=== PATIENT | female | born 1940 | race Caucasian/White ===

== ENCOUNTER → 2017-02-27 | Outpatient (CLI) | payer MEDICARE, OTHER ==
[~2017-02-27] MED LIST: CYCL-375 PO; HYDR-4246 PO; NAPR250T PO
--- NOTE | 2017-02-27 11:54 | DI ---
INDICATION: ITS.REASON: Z01.818 ENCOUNTER FOR OTHER PREPROCEDURAL EXAM PROCEDURE: CHEST 2-VIEWS UPRIGHT (PA \T\ LAT) Encounter: Initial COMPARISON: 10/26/2012 FINDINGS: The lungs are clear without evidence of focal abnormal airspace opacity. There is no pleural effusion or pneumothorax. 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 The heart size, mediastinal contours and pulmonary vascularity are within normal limits. There is no significant skeletal abnormality. IMPRESSION: No acute cardiopulmonary disease. .
== END ==
LOC: IMA 10:47
PROVIDERS: ATTEND Family Medicine
DX: Z01.818 Encounter for other preprocedural examination (principal)

== ENCOUNTER 2017-03-13 07:07 | Day surgery (SDC) | payer MEDICARE, OTHER ==
[~2017-03-13] VITALS: Ht 165.1 cm; Wt 80.1 kg
[2017-03-13] VITALS (20 sets, daily range): BP systolic 111–150; BP diastolic 55–90; PULSE 68–90; RESP 12–20; TEMP 97.2–98; O2SAT 91–100; Ht 165.1 cm; Wt 80.1 kg
[~2017-03-13 07:07] MED LIST changes: +ALBU8.5H INH; +CLINDAMYCIN 600mg IVPB 50 ML IV ONE; +HYDR25TA PO; +LIDOCAINE 1% (10mg/ml) 2ml SDV INJ ONE; +LR 1,000 ML IV SCH; +MELO-273 PO; +PANT40TA PO; +TRAM50TA4 PO
--- OUTSIDE RECORDS SUMMARY | 2017-03-13 07:11 | XMS REPORT | Referral Summary ---
Author Author [facility], Family Medicine Organization [facility] Address Unknown Phone Unavailable Care Team Providers Care Manager Banking Name Role Phone MiguelitodariusChu Primary Care Physician [phone] Encounter Date(s): 11/02/16 - 11/02/16 [facility], Family [address] [place] [id number] Discharge Diagnosis: Hematoma of scalp Discharge Diagnosis: Acute chest pain Discharge Disposition: 01-Home or Self Care Attending Physician: Get Banda MD Admitting Physician: Get Banda MD Vital Signs Most recent to 1 oldest [Reference Range]: Temperature Tympanic 36.9 degC [36.6-38.1 degC] (11/02/16 3:34 PM) Peripheral Pulse 76 bpm Rate [60-100 bpm] (11/02/16 3:34 PM) Respiratory Rate 16 br/min [14-20 br/min] (11/02/16 3:34 PM) Diastolic Blood 96 mmHg Pressure [60-90 *HI* mmHg] (11/02/16 3:34 PM) Problem List Condition Effective Dates Status Health Status Informant Obesity(Confirmed) Active patient Allergies, Adverse Reactions, Alerts Substance Reaction Severity Status codeine Active iodine Active penicillin Active Medications Protonix 40 mg, Oral, Daily, 0 Refill(s) Start Date: 11/02/16 Status: Ordered traMADol 50 mg oral tablet 50 mg 1 tabs, Oral, q4hr, [facility], # 30 tabs, 0 Refill(s) Start Date: 11/02/16 Status: Ordered Results No data available for this section Immunizations No data available for this section Procedures No data available for this section Social History Social History Type Response Smoking Status Never smoker Assessment and Plan Extracted from: Title: Office Visit Note Author: Get Banda MD Date: 11/02/16 Assessment/Plan 1.Acute chest pain I don't see obvious fractures on herrib films. I suggestedTylenol and tramadol as needed for pain. I think between the soreness in her chest and her head she should not be working we'll recheck her Monday and see how she' s doing then. Ordered: XR Ribs 2 Views Right 2.Hematoma of scalp CT is reported as normal other than the scalp hematoma. We discussed different neurologic symptoms progress or worsen she should return to the emergency room. No work prior to Monday recheck then tramadol and Tylenol as needed for pain.
--- OUTSIDE RECORDS SUMMARY | 2017-03-13 07:11 | XMS REPORT | Continuity of Care Document ---
Author Author [place] [facility] Organization [facility] Address Unknown Phone Unavailable Support Name Relationship Address Phone RONAK LUU DO Caregiver [address] [place] [address] Unavailable KITA SOLANO MD Caregiver [address] [place] [address] Unavailable STEPHANIE LARSEN Next Of Kin [address] [place] [address] Insurance Providers Guarantor Zuleika Santos Address [address] [facility] [place] [address] Email DENIED 16 Payer Medicare Policy Number [id number] Subscriber's Name Zuleika Santos Relationship 18 Self Effective Date 03 Payer Medicare Supp Wps Policy Number [id number] Subscriber's Name Ray Santos A Relationship 01 Spouse Effective Date 03 Payer Workers Compensation Subscriber's Name Zuleika Santos Relationship 18 Self Advance Directives Directive Response Recorded Date/Time Advanced Directives Type None 10/31/16 6:32am Chief Complaint and Reason for Visit Chief Complaint Fall Reason for Visit Fall on same level [id number] Problems Active Problems Medical Problem Onset Date Status Low back strain Unknown Acute Past Problems Medical Problem Onset Date Fall on same level Unknown Scalp hematoma Unknown Medications Current Home Medications Medication Dose Units Route Directions Days Qty Instructions Start Date Cyclobenzaprine Hcl 10 Mg Tablet 1 Tab Oral Three Times A Day as needed for Pain/Air Hunger 15 Tablet 08/09/15 Hydrocodone/Acetaminophen ([place] 5-325 Tablet) 1 Each Tablet 1-2 Tab Oral Every 6 Hours as needed for Pain 10 Tablet 08/09/15 Naproxen (Naprosyn) 250 Mg Tablet 1 Tab Oral Twice A Day 20 None 10/26/12 Social History Social History Problem Response Recorded Date/Time Onset Date Status Chewing Tobacco Status No 10/31/2016 6:45am Not Applicable Not Applicable Hx Substance Use No 10/31/2016 6:45am Not Applicable Not Applicable Hx Alcohol Use No 10/31/2016 6:45am Not Applicable Not Applicable Query Response Start Date Stop Date Smoking Status Never smoker Hospital Discharge Instructions No hospital discharge instructions. Plan of Care Discharge Date 10/31/16 8:03am Disposition 01 DISCHARGED HOME, SELF-CARE Condition at Discharge Stable Instructions/Education Provided How to Prevent Falls Forms Provided Return to Work/School Permit Prescriptions See Medication Section Referrals RONAK LUU DO Address: [address] [place] [address] [address] [place], [place] [id number] Additional Instructions/Education Nothing stronger than Tylenol or ibuprofen for the next 3 days follow-up with your PCP if not improving, symptoms worsen return to ER Care Plan and Goals Physician Care Plan Problem: Fall, scalp hematoma Goal: Follow up with primary care provider Instructions: Take medications and follow care plan as discussed/written Functional Status No functional status results. Allergies, Adverse Reactions, Alerts Allergen Type Severity Reaction Status Last Updated Penicillin Allergy Mild HEART FLUTTER Active 10/31/16 Influenza Virus Vaccines Allergy Mild RASH Active 10/31/16 Iodine Allergy Mild UNKOWN Active 10/31/16 Codeine Allergy Mild HEART FLUTTER Active 10/31/16 DYES Allergy Mild UNKNOWN Active 02/19/08 Immunizations Query Response on File Recorded Date/Time Influenza Vaccine Hx NONE 10/31/16 6:45am Vital Signs Acute Vital Signs Vital Response Date/Time Temperature (Fahrenheit) 97.2 deg F (96.8 - 99.1) 10/31/2016 8:03am Temperature (Calculated Celsius) 36.50253 degrees C (36.0 - 37.3) 10/31/2016 8:03am Pulse Rate (adult) 77 bpm (60 - 100) 10/31/2016 8:03am Respiratory Rate 14 breaths/min (10 - 20) 10/31/2016 8:03am O2 Sat by Pulse Oximetry 96 % (90 - 100) 10/31/2016 8:03am Blood Pressure 167/62 mm Hg 10/31/2016 8:03am Height (Feet) 5 feet 10/31/2016 6:32am Height (Inches) 6.00 inches 10/31/2016 6:32am Weight (Kilograms) 75.000 kg 10/31/2016 6:32am Body Mass Index (BMI) 26.0 10/31/2016 6:32am Results Name: ZULEIKA SANTOS Unit #: [id number] : 1940 Sex: F Admit Date: Loc / Svc: ED Discharge Date: DIAGNOSTIC IMAGING REPORT [facility] [id number] Ind[facility]: ITS.REASON: fall, hit head, large hematoma and headache PROCEDURE: CT HEAD W/O CONTRAST: Encounter: Initial Comparison: None Technique: Axial CT images through the head were performed without contrast. FINDINGS: The ventricles are of normal size, shape, and contour for the patient's age. There are scattered areas of low attenuation in the white matter which most likely represent changes from chronic microvascular ischemia. The brainstem, cerebellum, and cerebral hemispheres otherwise have a normal morphology and CT attenuation. There is no evidence of midline displacement. No hemorrhage, signs of acute territorial stroke, mass effect, mass lesions, or edema is evident. There is a large posterior right parietal scalp hematoma. The visualized portions of the skull base, midface, and calvarium demonstrate no abnormality. The paranasal sinuses are well aerated and free of significant disease. The tympanic and mastoid cavities appear normal. IMPRESSION: 1. Negative for acute intracranial injury. 2. Chronic changes of atrophy and microvascular ischemia. 3. Large right posterior parietal scalp hematoma. . Procedures Procedure Status Date Provider(s) Contrast x-ray esophagus Completed 08/12/16 Mri joint upr extrem w/o dye Completed 09/09/16 Encounters Encounter Location Arrival/Admit Date Discharge/Depart Date Attending Provider Departed Emergency Room [facility] 10/31/16 6:32am 10/31/16 8: 03am KITA SOLANO MD Registered [facility] 09/09/16 1:22pm RAND SANCHEZ Registered [facility] 08/12/16 8:09am RONAK LUU DO Recent Diagnosis
--- OUTSIDE RECORDS SUMMARY | 2017-03-13 07:11 | XMS REPORT | Referral Summary ---
Author Author [facility] Organization [facility] Address Unknown Phone Unavailable Care Team Providers Care Insecticide Maker Name Role Phone MiguelitodariusChu Primary Care Physician [phone] Encounter Date(s): 11/11/16 - 11/11/16 [facility], [address] [place] [address] Discharge Diagnosis: Closed head injury Discharge Diagnosis: Scalp hematoma Discharge Disposition: 01-Home or Self Care Attending Physician: Get Banda MD Admitting Physician: Get Banda MD Vital Signs Most recent to 1 oldest [Reference Range]: Temperature Tympanic 36.5 degC [36.6-38.1 degC] *LOW* (11/11/16 10:42 AM) Peripheral Pulse 72 bpm Rate [60-100 bpm] (11/11/16 10:42 AM) Respiratory Rate 16 br/min [14-20 br/min] (11/11/16 10:42 AM) Blood Pressure 176/90 mmHg [90-140/60-90 mmHg] *HI* (11/11/16 10:42 AM) Problem List Condition Effective Dates Status Health [...] Visit Note Author: Get Banda MD Date: 11/11/16 Assessment/Plan 1.Scalp hematoma This should continue to improve no further treatment needed. 2.Closed head injury It appears that she is recovered from herconcussion. I wrote a note that she may return to work on Monday without restriction. Follow up here only if she's having further problems or concerns. No activity restrictions at this point.
--- OUTSIDE RECORDS SUMMARY | 2017-03-13 07:11 | XMS REPORT | Referral Summary ---
Author Author [facility] Organization [facility] Address Unknown Phone Unavailable Care Team Providers Care Assistant Clinical Nurse Manager Name Role Phone MiguelitodariusChu Primary Care Physician [phone] Encounter Date(s): 11/07/16 - 11/07/16 [facility], [address] [place] [address] Discharge Diagnosis: Closed head injury Discharge Diagnosis: Scalp hematoma Discharge Disposition: 01-Home or Self Care Attending Physician: Get Banda MD Admitting Physician: Get Banda MD Vital Signs Most recent to 1 oldest [Reference Range]: Temperature Tympanic 36.8 degC [36.6-38.1 degC] (11/07/16 9:12 AM) Peripheral Pulse 68 bpm Rate [60-100 bpm] (11/07/16 9:12 AM) Respiratory Rate 16 br/min [14-20 br/min] (11/07/16 9:12 AM) Blood Pressure 162/86 mmHg [90-140/60-90 mmHg] *HI* (11/07/16 9:12 AM) Problem List Condition Effective Dates Status [...] Visit Note Author: Get Banda MD Date: 11/07/16 Assessment/Plan 1.Scalp hematoma This appears to be slowly improving no change in current treatment. 2.Closed head injury I think she likely didsustain a significant concussion. I don't think she is safe to driveat this point. I've recommendedcontinued rest as neededavoid strenuous activity. Tylenol or ibuprofen as needed for headache. Follow-up in one week for recheck.
[2017-03-13] MEDS ORDERED: MIDAZOLAM 2mg/2ml INJECTION IV ONE (07:30)
[2017-03-13 07:41] LABS: ANION GAP 14 MEQ/L (5-15); BUN/CREATININE RATIO 24 RATIO (6-26); CALCIUM 9.6 MG/DL (8.4-10.2); CHLORIDE 100 MEQ/L (98-107); CO2 - CARBON DIOXIDE 30 MEQ/L (22-30); CREATININE 1.1 MG/DL (0.7-1.2); GLOMERULAR FILTRATION RATE 48; GLUCOSE 112 MG/DL (65-110); POTASSIUM 4.2 MEQ/L (3.6-5); SODIUM 144 MEQ/L (134-144)
[2017-03-13] MEDS ORDERED: ROPIVACAINE 0.5% (5mg/ml) 30ml INJ ONE (07:54)
[2017-03-13] MEDS ORDERED: DEXAMETHASONE 4mg/ml - 1ml INJECTION ONE (07:54)
--- NOTE | 2017-03-13 07:55 | NUR ---
Versed/Nerve Block Versed 1mg IV administered at this time. EMAR shows Versed 2mg IV administered.
--- NOTE | 2017-03-13 08:12 | ANESPREOP ---
Anesthesia Record Date and Time DATE: 03/13/17 TIME: 07:28 Pre-Op Diagnosis Right shoulder Rotator cuff tear Proposed Surgical Procedure RT. SHOULDER ARTHROSCOPY/POSS RCR/SAD NPO since: Midnight Allergies: Coded Allergies: Influenza Virus Vaccines (Verified Allergy, Mild, RASH, 03/13/17) Penicillins (Verified Allergy, Mild, HEART FLUTTER, 03/13/17) codeine (Verified Allergy, Mild, HEART FLUTTER, 03/13/17) iodine (Verified Allergy, Mild, UNKOWN, 03/13/17) Uncoded Allergies: DYES (Allergy, Mild, UNKNOWN, 02/19/08) Ht/Wt/BMI Height: 5 ' 6.00 " Weight: kg BMI: kg/m2 Medications Inpatient Medications Current Medications Medications (Trade) Dose Ordered Sig/Carmita Start Time Stop Time Status Last Admin Dose Admin Lactated Ringer's (Lactated Ringers) 1,000 ml @ 50 mls/hr Q20H 03/13/17 07:00 Albuterol Sulfate (Proair HFA 90 mcg/actuation) 8.5 Gm Hfa.aer.ad, 2 PUFF INH Q4H PRN for ASTHMA, (Reported) Last Taken: on Unknown Date & Time Cyclobenzaprine HCl (Cyclobenzaprine HCl ) 10 Mg Tablet, 1 TAB PO TID PRN for PAIN/AIR HUNGER Last Taken: on Unknown Date & Time Hydrochlorothiazide (Hydrochlorothiazide ) 25 Mg Tablet, 1 TAB PO WB, (Reported) Last Taken: on 03/12/17 0600 Hydrocodone/Acetaminophen ([place] 5-325 Tablet) 1 Each Tablet, 1-2 TAB PO Q6H PRN for PAIN Last Taken: on Unknown Date & Time Meloxicam (Meloxicam) 7.5 Mg Tablet, 7.5 MG PO DAILY, (Reported) Last Taken: on Unknown Date & Time Naproxen (Naprosyn) 250 Mg Tablet, 1 TAB PO BID Last Taken: on Unknown Date & Time Pantoprazole Sodium (Protonix) 40 Mg Tablet.dr, 40 MG PO ACB, (Reported) Take 1 tablet, by mouth, one time a day before breakfast. Last Taken: on 03/06/17 Tramadol HCl (Tramadol HCl) 50 Mg Tablet, 50-100 MG PO HS PRN for PAIN, (Reported) Last Taken: on Unknown Date & Time Currently on Beta Gadiel: No Medical/Surgical History Anesthesia PMH: Reports: *Hypertension, Arthritis (OA PER H&P), Asthma (PER H&P ), Pneumonia (PER H&P), Reflux, Denies: Cancer Smoking Status: Never smoker Has pt. smoked today?: No Use Chewing Tobacco?: No Second Hand Exposure: No Substance Use Type: does not use Alcohol Intake: none Past Surgical History Orthopedic Surgeries: Yes - KNEE X2, TAILBONE,CARPAL TUNNEL X 2 Abdominal Surgeries: Genitourinary Surgeries: Cardiac Surgeries: Endocrine Surgeries: Reproductive Surgeries: Yes - HYST Neurological Surgeries: Ear Surgeries: Nose Surgeries: Throat Surgeries: Other Surgeries: Yes - KNEE X2, TAILBONE,CARPAL TUNNEL X 2 Anesthesia Adverse Reactions: FOUND none Family Hx of Anesthesia Advers: none Hx of Motion Sickness: No Pertinent Findings EKG Rhythm: Sinus Rhythm Physical Exam Respiratory: Lungs clear Cardiovascular: FOUND Regular rate, rhythm Airway Assessment Mallampati Score: II TMD: 2 Fingerbreadths Neck Extension: Good Overall Assessment: No Airway Concerns ASA: 3 Plan Anesthesia Plan: GETA Discussion Discussed risks/options/alternatives of anesthesia and questions answered. Patient consents. Nursing pain assessment noted. Attestation Statement Prior to the delivery of any anesthetic medication, I examined the patient, developed the plan, obtained the patient's consent and discussed the risk and benefits of the procedure with the patient/guardian. ALICIA BHAT CRNA March 13, 2017 07:30
--- NOTE | 2017-03-13 08:14 | ANESPD ---
Peripheral Nerve Blockade Physician: Meño Villarreal MD Date: 03/13/17 Surgical Procedure: Right Shoulder Scope Discussion Discussed risks/options/alternatives of anesthesia and questions answered. Patient consents. Nursing pain assessment noted. Block Start: 08:01 Block Stop: 08:03 Block Employed: [employer] Indication: post-operative pain Approach: right side confirmed Position: supine Patient: Consent Monitors: EKG, SpO2, NIBP IV Sedation: Yes Sedation: sedate w/meaningful contact Midazolam (mg): 1 Initial Vital Signs First Documented Vital Signs Date Time Temp Pulse Resp B/P Pulse Ox O2 Delivery O2 Flow Rate FiO2 03/13/17 07:29 98.0 88 18 137/90 96 Room Air Post Vital Signs Vital Signs Date Time Temp Pulse Resp B/P Pulse Ox O2 Delivery O2 Flow Rate FiO2 03/13/17 07:29 98.0 88 18 137/90 96 Room Air Initial Pain Score: 0 Post Block Score: 0 Prep: chlorhexadine/ETOH Ultrasound Used?: Yes (see ultrasound image in EMR) Nerve Simulator mA set at: 0.6 Twitch at: 1 Hz Needle Depth: 1 Muscle Response Bicep Injectate Ropivacaine (%): 0.5 Ropivacaine (mL): 25 Was Epi 1:200,000 Used?: No Injection Injection made incrementally with constant monitoring and aspiration every 5ml. with 4mg of Decadron ALICIA BHAT CRNA March 13, 2017 08:14
[2017-03-13] MEDS ORDERED: DESFLURANE 240 ML LIQUID IH ONE (09:19)
[2017-03-13] MEDS ORDERED: ROCURONIUM 50mg/5ml INJECTION IV ONE (09:20)
[2017-03-13] MEDS ORDERED: PROPOFOL 200mg 20 ML IV ONE (09:20)
[2017-03-13] MEDS ORDERED: FENTANYL 100mcg/2ml INJECTION ONE (09:20)
[2017-03-13] MEDS ORDERED: LIDOCAINE 2% (20mg/ml) 5ml PF SDV ONE (09:20)
[2017-03-13] MEDS ORDERED: GLYCOPYRROLATE 0.4mg/2ml INJECTION ONE (09:29)
[2017-03-13] MEDS ORDERED: EPHEDRINE SULFATE 50mg/ml INJECTION ONE (09:44)
[2017-03-13] MEDS ORDERED: SUGAMMADEX 200 MG/2 ML INJECTION IV ONE (10:56)
[2017-03-13] MEDS ORDERED: ONDANSETRON 4mg/2ml INJECTION ONE (10:58)
[2017-03-13] MEDS ORDERED: HYDR-347 PO (11:08)
--- NOTE | 2017-03-13 11:10 | PDPROCED ---
Immediate Operative Note DATE: 03/13/17 TIME: 11:08 Preop Diagnosis: RIGHT SHOULDER PT RCT, impingement Postop Diagnosis: Right shoulder RCT, impingement, AC DJD, chronic rupture long head biceps. Surgical Procedures: R Arthroscopic RCR (SAD, labral debridement, DCE) Surgeon: Phil Crew Leader Gluing: BRENDA [place] Anesthesia: General (plus regional block) Complications: none Estimated Blood Loss see anesthesia ANANTH GUTIERREZ March 13, 2017 11:10
--- NOTE | 2017-03-13 12:51 | ANESPO ---
Post-Op Note Date 03/13/17 Time: 11:45 Status Pt Participated in Evaluation: Pt participated in person Vital Signs Date Time Temp Pulse Resp B/P Pulse Ox O2 Delivery O2 Flow Rate FiO2 03/13/17 12:17 76 17 120/57 93 Room Air 03/13/17 11:48 97.6 03/13/17 11:18 5.00 Respiratory Function: Airway patent, Regular respirations Cardiovascular Function: Regular pulse Mental Status: Alert/oriented Pain Level Intensity: 0 (0) Hydration: Taking po fluids, IV infusing Complications during Recovery None apparent Post-Anesthesia Notes pt. [email or web address] Follow-Up Instructions Instructions Per Surgeon Additional Information none EVANGELISTA HUDDLESTON CRNA March 13, 2017 12:51
--- NOTE | 2017-03-13 13:12 | OPNOTEF ---
DATE OF PROCEDURE 03/13/2017 PREOPERATIVE DIAGNOSES 1. Right shoulder rotator cuff tear. 2. Right shoulder rotator cuff impingement. POSTOPERATIVE DIAGNOSES 1. Right shoulder full-thickness supraspinatus tear with partial-thickness anterior infraspinatus tear. 2. Right shoulder AC joint osteoarthritis. 3. Right shoulder rotator cuff impingement. 4. Right shoulder long head biceps tendon rupture. 4. Right shoulder primary arthritis, right glenohumeral joint. PROCEDURE 1. Right shoulder arthroscopic rotator cuff repair. 2. Right shoulder arthroscopic distal clavicle resection. 3. Right shoulder arthroscopic limited debridement, anterior, superior and posterior riley and humeral head. 6. Right shoulder arthroscopic subacromial decompression. SURGEON Meño Villarreal MD MANAGER PROCESS EXCELLENCE Matteo Veras PA-C ANESTHESIA General with regional block. FLUIDS\ Please refer to Anesthesia chart. EBL Minimal. TOURNIQUET None used. COMPLICATIONS None. CONDITION Stable to Recovery Room. IMPLANTS 1. Amezcua [employer]hew 5.0 mm TWINFIX anchor x 2. 2. Amezcua [employer] Nephew 5.5 mm MULTIFIX S anchor x 2. DESCRIPTION OF PROCEDURE The patient was identified in the preoperative holding area. The operative extremity was identified and appropriately marked. Risks, benefits, alternatives and potential complications were discussed and informed consent was obtained. The patient was taken to the operating theatre, placed supine on the operating table. Appropriate cardiorespiratory monitors were applied. General anesthesia was induced. A regional block had been placed in preoperative holding. The patient was positioned in a seated beach chair position with all bony prominences well padded. The head and neck were secured in a safe position. Right upper extremity was sterilely prepped and draped in the usual fashion. Surgical time-out was performed, confirmed with myself, the faa certified powerplant mechanic and circulating nurse. Preoperative antibiotics were given. Examination under anesthesia revealed full passive range of motion of the right shoulder. No evidence of instability. A standard posterior arthroscopic portal was established. The arthroscope was inserted and the glenohumeral joint was insufflated with saline. Needle localization was utilized to establish an anterior portal in the rotator interval and diagnostic examination ensued. There was diffuse grade 3 change to glenohumeral articular cartilage and some grade 2-3 change of the superior and anterior aspects of the glenoid labrum. A shaver was used to debride any loose chondral fragments. There was degenerative fraying of the anterior, superior and posterior riley which were also debrided with a suction shaver and ablated with the radiofrequency ablation device. The anterior-inferior and posterior-inferior riley were intact. The inferior axillary recess was free of loose bodies or debris. There was a small humeral osteophyte present in the axillary pouch. The posterior aspect of the rotator cuff was intact. There was a full-thickness tear at the posterior margin of the supraspinatus leading into the anterior edge of the infraspinatus. A shaver was utilized to debride the undersurface of the tear in this area as well as the medial border of the footprint. Subscapularis was intact. The long head biceps tendon was ruptured and retracted out of the joint. The superior labrum was debrided in this area of any remnant biceps tissue. The arthroscope was then withdrawn and placed into subacromial space. A lateral portal was established. A thorough bursectomy was performed to include the anterolateral and posterior gutters. A full-thickness rotator cuff tear was identified. Some bursal remaining fibers were debrided with a suction shaver. The footprint was then debrided to a bleeding cortical surface. The undersurface of the tendon was further debrided to stimulate a healing response. The tendon mobility was checked, noting we were able to reduce it to an anatomic location. The CA ligament was markedly frayed. This was released revealing a moderate-size anterolateral subacromial spur. A 5.5 was inserted and acromioplasty was performed over to the level of the AC joint. While at the AC joint, probing revealed large spurs of the lateral clavicle. The inferior capsule was released revealing a large inferior spurring to the lateral clavicle with marked narrowing of the AC joint. There was additional spurring at the medial aspect of the acromion, particularly anteriorly. The acromion was further debrided with the bur and a standard distal clavicle resection was then performed utilizing the anterior and lateral portals. Approximately 1 cm of the lateral clavicle was removed and 1-2 mm of the medial acromion. Care was taken to assure complete resection at the posterior-superior aspect of the clavicle. Care was also taken to maintain the posterior and superior capsular ligaments. Attention was then turned towards repair of the rotator cuff. Cannulas were placed anteriorly and laterally. Two 5.0 mm anchors were placed through a percutaneous portal along the medial margin of the footprint just lateral to the articular cartilage. Sutures were then passed in a horizontal mattress configuration and tied arthroscopically. A single limb from each knot was then pulled laterally out the cannula and placed through a MULTIFIX S anchor. The first anchor was deployed at the anterior margin of the tear on the lateral aspect of the greater tuberosity. The sutures were appropriately tensioned to compress the lateral margin of the tendon to the footprint in this transosseous equivalent type repair. The anchor was inserted and deployed and the suture tails were cut. This was then repeated with the remaining suture anchors and the remaining anchor at the more posterior aspect of the greater tuberosity. Probing of the repair noted an overall solid repair. It moved in sync with the shoulder with gentle passive range of motion while visualizing arthroscopically. The shoulder was then copiously lavaged, irrigated and drained. All arthroscopic instruments were removed. Portals were closed with nylon sutures. Sterile dressings were applied followed by an abduction sling. The patient was awakened from anesthesia and taken to the recovery room in stable and satisfactory condition. ANDREZ
== END 2017-03-13 12:35 | disposition home or self-care (01) ==
LOC: NSC 07:07
PROVIDERS: ATTEND Orthopaedic Surgery
DX: M75.121 Complete rotator cuff tear or rupture of right shoulder, not specified as traumatic (principal); M19.011 Primary osteoarthritis, right shoulder; M75.41 Impingement syndrome of right shoulder; M66.821 Spontaneous rupture of other tendons, right upper arm; I10 Essential (primary) hypertension; E78.00 Pure hypercholesterolemia, unspecified; J45.909 Unspecified asthma, uncomplicated; Z79.899 Other long term (current) drug therapy; Z79.1 Long term (current) use of non-steroidal anti-inflammatories (NSAID); Z88.0 Allergy status to penicillin; Z88.5 Allergy status to narcotic agent; Z91.041 Radiographic dye allergy status; Z90.710 Acquired absence of both cervix and uterus; Z96.653 Presence of artificial knee joint, bilateral
CPT/HCPCS: 29824; 29826; 29827; 36415; 80048; C1713; J1100; J2250; J2405; J2704; J2795; J3010; J7120